=== PATIENT | male | born 1990 | race Caucasian/White ===

== ENCOUNTER 2019-01-13 16:11 | Emergency (ER) | payer SELFPAY | END 2019-01-13 17:24 | disposition home or self-care (01) | LOC: NAV ERS 16:11 | DX: R42 Dizziness and giddiness (principal); R51 Headache | CPT/HCPCS: 93005 ==

== ENCOUNTER 2020-07-20 16:19 | Emergency (ER) | payer BC, SELFPAY ==
[2020-07-20] MEDS ORDERED: Lidocaine 1% (PF) 30 ML VIAL ONE (16:35)
[2020-07-20] MEDS ORDERED: Sulfameth/Trimethoprim DS 800-160mg TAB ONE (16:53)
== END 2020-07-20 17:00 | disposition home or self-care (01) ==
LOC: NAV ERS 16:19
DX: L02.414 Cutaneous abscess of left upper limb (principal); L03.114 Cellulitis of left upper limb; L08.9 Local infection of the skin and subcutaneous tissue, unspecified
CPT/HCPCS: 10060; J2001

== ENCOUNTER 2020-08-13 16:28 | Emergency (ER) | payer BC, SELFPAY ==
[2020-08-13 17:41] LABS: #Basophils 0.1 thou/uL (0.0-0.2); #Eosinphils 0.2 thou/uL (0.0-0.7); #Lymphocytes 1.9 thou/uL (1.20-3.40); #Monocytes 0.9 thou/uL (0.11-0.59); #Neutrophils 6.1 thou/uL (1.40-6.50); %Basophils 0.9 % (0.0-1.0); %Eosinophils 2.7 % (0.0-10.0); %Lymphocytes 20.5 % (21.0-51.0); %Monocytes 9.3 % (0.0-10.0); %Neutrophils 66.6 % (42.0-75.0); Hemoglobin 13.6 g/dL (14.0-18.0); Mean Corpuscular HGB CONC 33.1 g/dL (32.0-36.0); Mean Corpuscular Hemoglobin 30.6 pg (27.0-31.0); Mean Corpuscular Volume 92.4 fL (78.0-98.0); Mean Platelet Volume 9.1 fL (7.4-10.4); Platelet Count 245 thou/uL (130-400); RBC Distribution Width 11.1 % (11.5-14.5); Red Blood Cell (RBC) Count 4.43 mill/uL (4.70-6.10); White Blood Cell (WBC) Count 9.1 thou/uL (4.8-10.8)
[2020-08-13 17:57] LABS: ALT (SGPT) 15 U/L (8-55); AST (SGOT) 20 U/L (5-34); Albumin 4.1 g/dL (3.5-5.0); Alkaline Phosphatase 92 U/L (40-110); Anion Gap 15 mmol/L (10-20); BUN (Urea Nitrogen) 12 mg/dL (8.9-20.6); Bilirubin, Total 0.8 mg/dL (0.2-1.2); CRP (Inflammatory) 3.87 mg/dL (= or < 0.5); Calc. Creatinine Clearance 0 mL/min (70-130); Calcium 9.3 mg/dL (7.8-10.44); Carbon Dioxide 26 mmol/L (22-29); Chloride 102 mmol/L (98-107); Globulin 3.8 g/dL (2.4-3.5); Glucose 89 mg/dL (70-105); Potassium 3.8 mmol/L (3.5-5.1); Protein, Total 7.9 g/dL (6.0-8.3); Sodium 139 mmol/L (136-145)
[2020-08-13] MEDS ORDERED: Ketorolac Tromethamine 60 MG/2 ML VIAL ONE (18:30)
== END 2020-08-13 20:22 | disposition short-term general hospital (02) ==
LOC: NAV ERS 16:28
DX: M54.5 Low back pain (principal); R70.0 Elevated erythrocyte sedimentation rate; R79.82 Elevated C-reactive protein (CRP)
CPT/HCPCS: 80053; 85025; 85652; 86140; 96372; 99284; J1885

== ENCOUNTER 2020-08-16 17:27 | Emergency (ER) | payer SELFPAY ==
[2020-08-16] MEDS ORDERED: traMADol HCl 50 MG TAB ONE (18:24)
--- NOTE | 2020-08-16 18:41 | RAD ---
RADIOGRAPH LEFT KNEE 4VIEWS: DATE: 08/16/2020 HISTORY: 30-year-old male with left knee pain FINDINGS: There is no evidence of fracture or dislocation. There is no evidence of periostitis, permeative lesi on, osteolytic lesion, or osteoblastic lesion. The joint spaces are maintained without erosions or significant osteophytes. IMPRESSION: Normal
[2020-08-16] MEDS ORDERED: Orphenadrine Citrate 60 MG/2 ML VIAL ONE (19:00)
[2020-08-16] MEDS ORDERED: HYDROcodone/Acetaminophen 7.5/325 mg Tablet ONE (20:09)
== END 2020-08-16 20:20 | disposition short-term general hospital (02) ==
LOC: NAV ERS 17:27
DX: M25.562 Pain in left knee (principal); R79.1 Abnormal coagulation profile; Z86.718 Personal history of other venous thrombosis and embolism
CPT/HCPCS: 36415; 82550; 85379; 96372; J2360